=== PATIENT | female | born 1955 | race Caucasian/White ===

== ENCOUNTER → 2021-07-01 08:03 | Outpatient (CLI) | payer MEDICARE, OTHER, SELFPAY ==
[2021-07-01 18:48] LABS: Alanine Aminotransferase 16 IU/L (<35); Albumin 4.2 g/dL (3.5-5.0); Albumin Globulin Ratio 1.4 (1.0-2.8); Alkaline Phosphatase 72 U/L (38-126); Aspartate Aminotransferase 26 IU/L (14-36); BUN Creatinine Ratio 24.3 (6-22); Bilirubin Total 1.3 mg/dL (0.2-1.3); Blood Urea Nitrogen 18 mg/dL (7-17); Calcium 11.4 mg/dL (8.4-10.2); Carbon Dioxide 31 mmol/L (22-32); Chloride 104 mmol/L (98-107); Cholesterol 207 mg/dL (140-199); Estimated Glomerular Filt Rate > 60.0 mL/min (>60); Glucose 104 mg/dL (80-110); HDL Cholesterol 77 mg/dL (40-60); HEMOLYSIS < 15 (0-50); LDL Cholesterol Calculated 113 mg/dL (<100); Potassium 4.6 mmol/L (3.4-5.1); Sodium 138 mmol/L (137-145); Total Protein 7.2 g/dL (6.3-8.2); Triglycerides 84 mg/dL (35-150)
[2021-07-01 18:55] LABS: Add Manual Diff / Slide Review NO; Basophils Absolute Auto 0 /uL (0-100); Basophils Percent Auto 0.8 % (0-2); Eosinophils Absolute Auto 100 /uL (0-450); Eosinophils Percent Auto 3.2 % (2-4); Hemoglobin 14.3 g/dL (12.0-16.0); Lymphocytes Absolute Auto 1500 /uL (1100-4500); Mean Corpuscular HGB Conc 33.3 % (30-36); Mean Corpuscular Hemoglobin 30.1 PG (26-34); Mean Corpuscular Volume 90.5 fL (80-100); Monocytes Absolute Auto 400 /uL (0-900); Monocytes Percent Auto 9.3 % (3-14); Neutrophils Absolute Auto 2500 /uL (1500-7000); Neutrophils Percent Auto 54.7 % (50-75); Platelet Count 308 X10^3/uL (150-400); Red Blood Cell Count 4.75 X10^6/uL (4.0-5.2); Red Cell Distribution Width 13.6 % (11.6-14.8); White Blood Cell Count 4.6 X10^3/uL (4.5-11.0)
== END ==
PROVIDERS: PCP Family Medicine; Visit Provider Physician Assistant
DX: M25.511 Pain in right shoulder (principal); I10 Essential (primary) hypertension; G89.29 Other chronic pain
CPT/HCPCS: 80053; 80061; 85025

== ENCOUNTER → 2021-07-11 09:08 | Outpatient (CLI) | payer MEDICARE, OTHER, SELFPAY ==
[2021-07-11 18:36] LABS: Appearance Urine UA CLEAR; Bilirubin Urine UA NEGATIVE (NEGATIVE); Color Urine UA YELLOW; Glucose Urine UA NEGATIVE (Negative); Ketones Urine UA NEGATIVE (NEGATIVE); Leukocyte Esterase Urine UA NEGATIVE (NEGATIVE); Nitrite Urine UA NEGATIVE (Negative); Occult Blood Urine UA NEGATIVE (Negative); Protein Urine UA NEGATIVE (Negative); Specific Gravity Urine UA 1.015 (1.000-1.035); Urobilinogen Urine UA 0.2 E.U./dL (0.2)
[2021-07-11 18:37] LABS: pH Urine UA 5.5 (4.5-8.0)
[2021-07-11 19:09] LABS: RBC Urine None Seen (0-5/HPF); Squamous Epithelial Cell Urine 5-10 /HPF (0-5/HPF); WBC Urine 0-1/HPF (0-5/HPF)
[2021-07-11 19:10] LABS: Bacteria Urine None Seen; Culture Indicated Urine Cult Not Indicated
[2021-07-11 19:26] LABS: Vitamin D 25 Hydroxy (D3) 28.2 ng/mL (30.0-100.0)
[2021-07-11 19:39] LABS: TSH w/ Reflex to FT4 2.28 uIU/mL (0.47-4.68)
[2021-07-12 15:46] LABS: Calcium 10.5 mg/dL (8.7-10.3); Parathyroid Hormone, Intact 54 pg/mL (15-65)
== END ==
PROVIDERS: PCP Family Medicine; Visit Provider Physician Assistant
DX: E83.52 Hypercalcemia (principal); I10 Essential (primary) hypertension; B02.9 Zoster without complications; M54.40 Lumbago with sciatica, unspecified side
CPT/HCPCS: 81001; 82306; 82310; 83970; 84443

== ENCOUNTER → 2021-08-10 13:28 | Outpatient (CLI) | payer MEDICARE, OTHER, SELFPAY ==
[2021-08-10 18:48] LABS: BUN Creatinine Ratio 26.9 (6-22); Blood Urea Nitrogen 18 mg/dL (7-17); Carbon Dioxide 29 mmol/L (22-32); Chloride 104 mmol/L (98-107); Estimated Glomerular Filt Rate > 60.0 mL/min (>60); Glucose 89 mg/dL (80-110); HEMOLYSIS 18 (0-50); Potassium 4.3 mmol/L (3.4-5.1); Sodium 137 mmol/L (137-145)
[2021-08-22 15:10] LABS: 1,25-Dihydroxy, Vitamin D-2 <10 pg/mL (.)
== END ==
PROVIDERS: PCP Family Medicine; Visit Provider Physician Assistant
DX: E83.52 Hypercalcemia (principal)
CPT/HCPCS: 80048; 82652

== ENCOUNTER → 2021-09-20 11:40 | Outpatient (CLI) | payer MEDICARE, OTHER, SELFPAY ==
[2021-09-20 19:14] LABS: COVID19 - ORCAS (NP or Nasal) Negative (Negative)
== END ==
PROVIDERS: PCP Physician Assistant; Visit Provider Physician Assistant
DX: Z01.812 Encounter for preprocedural laboratory examination (principal)
CPT/HCPCS: 72100; C9803; U0003

== ENCOUNTER → 2021-10-20 12:47 | Outpatient (CLI) | payer MEDICARE, OTHER, SELFPAY ==
--- NOTE | 2021-10-20 | DI.MRI.S_ITS ---
PROCEDURE: MR SHOULDER RT WO CON INDICATIONS: RIGHT SHOULDER PAIN TECHNIQUE: Noncontrast oblique coronal T2 fast spin echo with fat saturation, oblique sagittal T1 spin echo and T2 fast spin echo with fat saturation, axial T1 spin echo and T2 fast spin echo with fat saturation through the shoulder. COMPARISON: None. FINDINGS: Image quality: Excellent. Rotator cuff: Full-thickness tear of the supraspinatus tendon measuring approximately 2.8 cm. Full-thickness of the infraspinatus tendon, measuring approximately 2.8 cm. Subscapularis tendinopathy with interstitial tear. Sagittal images demonstrate grade 2/3 supraspinatus muscle atrophy. Fatty atrophy of the infraspinatus muscle is also seen. Bones and bursae: No bone marrow contusions or fractures. Mild to moderate acromioclavicular joint degeneration with edema within the articulation. No os acromiale. Small amount subacromial-subdeltoid bursal fluid is present. Capsule and soft tissues: No definitive labral tear is appreciated. The long head of the biceps tendon demonstrates normal location. Small amount of fluid surrounds the biceps tendon, which may reflect joint fluid versus tenosynovitis. Small glenohumeral joint effusion. The coracohumeral ligament is normal in thickness. IMPRESSION: 1. Full-thickness tears of the supraspinatus and infraspinatus tendons as detailed above. 2. Mild to moderate AC joint degeneration. 3. Subacromial-subdeltoid bursal fluid, which may reflect bursitis versus joint fluid. 4. Glenohumeral joint fluid. 5. Small amount of fluid surrounding the biceps tendon, which may reflect tenosynovitis versus joint fluid. Dictated by: Uriah Landon M.D. on 10/20/2021 at 14:46 Approved by: Uriah Landon M.D. on 10/20/2021 at 15:39
--- NOTE | 2021-10-20 | DI.US.S_ITS ---
PROCEDURE: US PELVIC COMPLETE INDICATIONS: LEIOMYOMA OF UTERUS; TECHNIQUE: Real-time scanning was performed of the pelvic organs, with image documentation. Additional endovaginal scanning was necessary due to incomplete visualization of the adnexal and endometrial structures by transabdominal scanning. COMPARISON: None. FINDINGS: Uterus: Uterus is enlarged measuring 11.0 x 5.6 x 6.2 cm. Myometrium is not well seen. Endometrium is not visualized. There are multiple uterine fibroids. A 5.1 x 2.6 x 2.8 cm subserosal fibroid is seen in the right uterine wall. A 5.0 x 5.0 x 2.8 cm subserosal fibroid is also seen in the right uterine wall. There is a small amount of fluid within the endometrial canal. Strong posterior shadowing of the fibroids is likely secondary to calcifications. Ovaries: Not visualized due to overlying bowel loops. Other: No pathologic free abdominal or pelvic fluid and large shadowing uterine fibroids. IMPRESSION: 1. Myomatous uterus with at least 2 large uterine fibroids. 2. Myometrium is not well secondary to strong shadowing of the fibroids. Endometrium is not visualized. There is a small amount of fluid in the endocervical canal. Recommend MRI for further evaluation if clinically indicated. 2. Ovaries are not visualized. We strive to produce accurate, complete, and clear reports of imaging services. To assist us in improving patient care, this report was composed using standard report templates and voice recognition software. Therefore, it may contain abnormal punctuation, insertions and/or omissions. Occasional wrong-word or sound-alike substitutions may occur. Though we review the report and make efforts to correct it, we do recommend that the report be read carefully in proper context to recognize any text inaccuracies. Dictated by: Lluvia Marrero M.D. on 10/20/2021 at 17:52 Approved by: Lluvia Marrero M.D. on 10/21/2021 at 7:16
== END ==
PROVIDERS: PCP Physician Assistant; Referring Provider Physician Assistant; Visit Provider Physician Assistant
DX: M19.011 Primary osteoarthritis, right shoulder (principal); D25.2 Subserosal leiomyoma of uterus; N85.2 Hypertrophy of uterus; M25.511 Pain in right shoulder; M75.121 Complete rotator cuff tear or rupture of right shoulder, not specified as traumatic
CPT/HCPCS: 73221; 76830; 76856

== ENCOUNTER → 2022-02-07 14:00 | Outpatient (CLI) | payer MEDICARE, OTHER, SELFPAY ==
[2022-02-07 19:36] LABS: Alanine Aminotransferase 17 IU/L (<35); Albumin 3.9 g/dL (3.5-5.0); Albumin Globulin Ratio 1.3 (1.0-2.8); Alkaline Phosphatase 82 U/L (38-126); Aspartate Aminotransferase 24 IU/L (14-36); BUN Creatinine Ratio 23.3 (6-22); Bilirubin Total 0.8 mg/dL (0.2-1.3); Blood Urea Nitrogen 17 mg/dL (7-17); Calcium 10.4 mg/dL (8.4-10.2); Carbon Dioxide 25 mmol/L (22-32); Chloride 105 mmol/L (98-107); Estimated Glomerular Filt Rate > 60 mL/min (>60); Globulin 2.9 g/dL (1.7-4.1); Glucose 151 mg/dL (80-110); HEMOLYSIS 17 (0-50); Potassium 3.8 mmol/L (3.4-5.1); Sodium 136 mmol/L (137-145); Total Protein 6.8 g/dL (6.3-8.2)
[2022-02-09 11:34] LABS: Calcium 10.8 mg/dL (8.7-10.3); Parathyroid Hormone, Intact 61 pg/mL (15-65)
[2022-02-10 11:26] LABS: M-Spike % Not Observed % (Not Observed); Urine Total Protein <4.0 mg/dL (Not Estab.)
== END ==
PROVIDERS: PCP Family Medicine; Visit Provider Physician Assistant
DX: E83.52 Hypercalcemia (principal)
CPT/HCPCS: 80053; 82310; 82397; 83970; 84156; 84166

== ENCOUNTER → 2022-03-06 15:17 | Outpatient (CLI) | payer MEDICARE, OTHER, SELFPAY | PROVIDERS: PCP Physician Assistant; Referring Provider Physician Assistant; Visit Provider Physician Assistant | DX: Z13.820 Encounter for screening for osteoporosis; M85.851 Other specified disorders of bone density and structure, right thigh; M85.852 Other specified disorders of bone density and structure, left thigh; E83.52 Hypercalcemia; Z78.0 Asymptomatic menopausal state | CPT/HCPCS: 77080 ==

== ENCOUNTER → 2022-03-30 14:34 | Outpatient (CLI) | payer MEDICARE, OTHER, SELFPAY ==
[2022-04-04 15:42] LABS: Alpha 1 Globulin 0.3 g/dL (0.0-0.4); Alpha 2 Globulin 0.8 g/dL (0.4-1.0); Gamma Globulin 1.1 g/dL (0.4-1.8); Protein, Total 7.2 g/dL (6.0-8.5)
== END ==
PROVIDERS: PCP Physician Assistant; Visit Provider Physician Assistant
DX: E83.52 Hypercalcemia (principal)
CPT/HCPCS: 84155; 84165

== ENCOUNTER → 2022-05-10 09:11 | Outpatient (CLI) | payer MEDICARE, OTHER, SELFPAY ==
--- NOTE | 2022-05-10 09:14 | DI.MG.S_ITS ---
BILATERAL DIGITAL SCREENING MAMMOGRAM 3D/2D WITH CAD: 05/10/2022 CLINICAL: Routine screening. Comparison is made to exams dated: 01/03/2017 mammogram, 11/17/2016 mammogram, and 11/04/2014 mammogram - Outside facility. There are scattered areas of fibroglandular density in both breasts (category b / 25%-50% glandular tissue). Current study was also evaluated with a Computer Aided Detection (CAD) system. No significant masses, calcifications, or other findings are seen in either breast. There has been no significant interval change. IMPRESSION: NEGATIVE There is no mammographic evidence of malignancy. A 1 year screening mammogram is recommended. Based on the Tyrer Cuzick model (a risk assessment model) the patient's lifetime risk is 7.0% and her 10 year risk is 3.7%. According to the ACR, ACS, and NCCN guidelines, an annual breast MRI exam along with mammogram is recommended if the patient's lifetime risk is 20% or greater. This exam was interpreted at Station ID: [id number]. NOTE: For mammograms, a report in lay terms will be sent to the patient. Approximately 15% of breast malignancies will not be visualized mammographically. In the management of a palpable breast mass, a negative mammogram must not discourage biopsy of a clinically suspicious lesion. Electronically Signed By: Bienvenido mantilla/codi:05/10/2022 11:51:57 letter sent: Normal Exam ACR BI-RADS Category 1: Negative [id number]
== END ==
PROVIDERS: PCP Physician Assistant; Referring Provider Physician Assistant; Visit Provider Physician Assistant
DX: Z12.31 Encounter for screening mammogram for malignant neoplasm of breast (principal)
CPT/HCPCS: 77063; 77067

== ENCOUNTER → 2022-07-12 13:07 | Outpatient (CLI) | payer MEDICARE, OTHER, SELFPAY ==
[2022-07-12 20:24] LABS: BUN Creatinine Ratio 20.2 (6-22); Blood Urea Nitrogen 19 mg/dL (7-17); Calcium 10.9 mg/dL (8.4-10.2); Carbon Dioxide 28 mmol/L (22-32); Chloride 104 mmol/L (98-107); Estimated Glomerular Filt Rate > 60 mL/min (>60); Glucose 88 mg/dL (80-110); HEMOLYSIS < 15 (0-50); Potassium 4.6 mmol/L (3.4-5.1); Sodium 138 mmol/L (137-145)
== END ==
PROVIDERS: PCP Physician Assistant; Visit Provider Physician Assistant
DX: E83.52 Hypercalcemia (principal)
CPT/HCPCS: 80048

== ENCOUNTER → 2022-10-19 08:49 | Outpatient (CLI) | payer MEDICARE, OTHER, SELFPAY ==
[2022-10-19 10:50] LABS: BUN Creatinine Ratio 25.7 (6-22); Blood Urea Nitrogen 19 mg/dL (7-17); Calcium 10.6 mg/dL (8.4-10.2); Carbon Dioxide 27 mmol/L (22-32); Chloride 102 mmol/L (98-107); Estimated Glomerular Filt Rate > 60 mL/min (>60); Glucose 99 mg/dL (80-110); HEMOLYSIS < 15 (0-50); Potassium 4.9 mmol/L (3.4-5.1); Sodium 134 mmol/L (137-145)
[2022-10-19 11:06] LABS: Vitamin D 25 Hydroxy (D3) 27.2 ng/mL (30.0-100.0)
[2022-10-19 11:20] LABS: TSH w/ Reflex to FT4 1.27 uIU/mL (0.47-4.68)
[2022-10-20 12:30] LABS: Ionized Calcium 5.7 mg/dL (4.5-5.6)
[2022-10-22 08:40] LABS: Parathyroid Hormone Int 91 pg/mL (15-65)
[2022-10-23 16:20] LABS: Albumin 3.6 g/dL (2.9-4.4); Alpha-1-Globulin 0.2 g/dL (0.0-0.4); Alpha-2-Globulin 0.7 g/dL (0.4-1.0); Gamma Globulin 1.1 g/dL (0.4-1.8); Globulin Total 2.9 g/dL (2.2-3.9); Protein, Total 6.5 g/dL (6.0-8.5)
[2022-10-24 13:26] LABS: M-Spike % Not Observed % (Not Observed); Urine Total Protein 4.7 mg/dL (Not Estab.)
== END ==
PROVIDERS: PCP Physician Assistant; Referring Provider Internal Medicine Endocrinology, Diabetes & Metabolism; Visit Provider Internal Medicine Endocrinology, Diabetes & Metabolism
DX: E83.52 Hypercalcemia (principal)
CPT/HCPCS: 36415; 80048; 82306; 82330; 82652; 83970; 84155; 84156; 84165; 84166; 84443

== ENCOUNTER → 2022-10-23 10:05 | Outpatient (CLI) | payer MEDICARE, OTHER, SELFPAY ==
[2022-10-23 23:44] LABS: Calcium Urine Random 9.9 mg/dL
[2022-10-23 23:45] LABS: Creatinine Urine Random 74.1 mg/dL
[2022-10-24 00:54] LABS: Collection Time Urine 24 Hours
[2022-10-24 00:55] LABS: Calcium 24 Hour Urine 129 mg/day (100-300); Collection Time Urine 24 Hours; Creatinine 24 Hour Urine 963 mg/day (800-1800); Total Volume Urine 1300 mL
== END ==
PROVIDERS: PCP Physician Assistant; Visit Provider Internal Medicine Endocrinology, Diabetes & Metabolism
DX: E83.50 Unspecified disorder of calcium metabolism (principal)
CPT/HCPCS: 82340; 82570

== ENCOUNTER → 2023-03-08 11:38 | Outpatient (CLI) | payer MEDICARE, OTHER, SELFPAY ==
[2023-03-08 20:02] LABS: BUN Creatinine Ratio 22.1 (6-22); Blood Urea Nitrogen 15 mg/dL (7-17); Calcium 11.2 mg/dL (8.4-10.2); Carbon Dioxide 29 mmol/L (22-32); Chloride 103 mmol/L (98-107); Estimated Glomerular Filt Rate > 60 mL/min (>60); Glucose 100 mg/dL (80-110); HEMOLYSIS < 15 (0-50); Potassium 4.1 mmol/L (3.4-5.1); Sodium 137 mmol/L (137-145)
[2023-03-08 20:27] LABS: Vitamin D 25 Hydroxy (D3) 20.7 ng/mL (30.0-100.0)
[2023-03-13 06:44] LABS: Parathyroid Hormone Int 76 pg/mL (15-65)
== END ==
PROVIDERS: PCP Physician Assistant; Visit Provider Internal Medicine Endocrinology, Diabetes & Metabolism
DX: M85.80 Other specified disorders of bone density and structure, unspecified site (principal); E83.52 Hypercalcemia
CPT/HCPCS: 80048; 82306; 82397; 83970

== ENCOUNTER → 2023-06-19 17:18 | Outpatient (CLI) | payer MEDICARE, OTHER, SELFPAY ==
[2023-06-19 17:41] LABS: Add Manual Diff / Slide Review NO; Basophils Absolute Auto 0 /uL (0-100); Basophils Percent Auto 0.6 % (0-2); Eosinophils Absolute Auto 100 /uL (0-450); Hemoglobin 13.6 g/dL (12.0-16.0); Lymphocytes Absolute Auto 2100 /uL (1100-4500); Lymphocytes Percent Auto 30.4 % (25-40); Mean Corpuscular HGB Conc 33.1 % (30-36); Mean Corpuscular Hemoglobin 30.1 PG (26-34); Mean Corpuscular Volume 91.1 fL (80-100); Monocytes Absolute Auto 600 /uL (0-900); Monocytes Percent Auto 8.5 % (3-14); Neutrophils Absolute Auto 4100 /uL (1500-7000); Neutrophils Percent Auto 58.5 % (50-75); Platelet Count 293 X10^3/uL (150-400); Red Cell Distribution Width 14.2 % (11.6-14.8); White Blood Cell Count 7.1 X10^3/uL (4.5-11.0)
== END ==
LOC: LAB 17:20
PROVIDERS: PCP Physician Assistant; Referring Provider Physician Assistant; Visit Provider Physician Assistant
DX: Z51.81 Encounter for therapeutic drug level monitoring (principal); Z79.1 Long term (current) use of non-steroidal anti-inflammatories (NSAID)
CPT/HCPCS: 36415; 85025

== ENCOUNTER → 2023-08-14 16:44 | Outpatient (CLI) | payer MEDICARE, OTHER, SELFPAY ==
--- NOTE | 2023-08-14 16:46 | DI.MG.S_ITS ---
BILATERAL DIGITAL SCREENING MAMMOGRAM 3D/2D WITH CAD: 08/14/2023 CLINICAL: Routine screening. Comparison is made to exams dated: 05/10/2022 mammogram - [facility], 01/03/2017 mammogram, 11/04/2014 mammogram, and 08/02/2011 mammogram - Outside facility. There are scattered areas of fibroglandular density in both breasts (category b / 25%-50% glandular tissue). Current study was also evaluated with a Computer Aided Detection (CAD) system. No significant masses, calcifications, or other findings are seen in either breast. There has been no significant interval change. IMPRESSION: NEGATIVE There is no mammographic evidence of malignancy. A 1 year screening mammogram is recommended. Based on the Tyrer Cuzick model (a risk assessment model) the patient's lifetime risk is 6.6% and her 10 year risk is 3.7%. According to the ACR, ACS, and NCCN guidelines, an annual breast MRI exam along with mammogram is recommended if the patient's lifetime risk is 20% or greater. This exam was interpreted at Station ID: [id number]. NOTE: For mammograms, a report in lay terms will be sent to the patient. Approximately 15% of breast malignancies will not be visualized mammographically. In the management of a palpable breast mass, a negative mammogram must not discourage biopsy of a clinically suspicious lesion. Electronically Signed By: Hector aguilera/codi:08/15/2023 12:58:20 letter sent: Normal Exam ACR BI-RADS Category 1: Negative [id number]
== END ==
PROVIDERS: PCP Physician Assistant; Referring Provider Physician Assistant; Visit Provider Physician Assistant
DX: Z12.31 Encounter for screening mammogram for malignant neoplasm of breast (principal); R92.323 Mammographic fibroglandular density, bilateral breasts
CPT/HCPCS: 77063; 77067

== ENCOUNTER → 2023-08-30 09:47 | Outpatient (CLI) | payer MEDICARE, OTHER, SELFPAY ==
[2023-08-30 18:55] LABS: Alanine Aminotransferase 18 IU/L (<35); Albumin Globulin Ratio 1.4 (1.0-2.8); Alkaline Phosphatase 95 U/L (38-126); Aspartate Aminotransferase 26 IU/L (14-36); Bilirubin Total 0.9 mg/dL (0.2-1.3); Blood Urea Nitrogen 22 mg/dL (7-17); Calcium 11.4 mg/dL (8.4-10.2); Carbon Dioxide 26 mmol/L (22-32); Chloride 109 mmol/L (98-107); Cholesterol 204 mg/dL (140-199); Estimated Glomerular Filt Rate > 60 mL/min (>60); Globulin 2.9 g/dL (1.7-4.1); Glucose 99 mg/dL (80-110); HDL Cholesterol 82 mg/dL (40-60); HEMOLYSIS < 15 (0-50); LDL Cholesterol Calculated 109 mg/dL (<100); Potassium 4.8 mmol/L (3.4-5.1); Sodium 137 mmol/L (137-145); Total Protein 6.9 g/dL (6.3-8.2); Triglycerides 67 mg/dL (35-150)
== END ==
PROVIDERS: PCP Physician Assistant; Visit Provider Physician Assistant
DX: Z13.6 Encounter for screening for cardiovascular disorders (principal); I10 Essential (primary) hypertension; E83.52 Hypercalcemia
CPT/HCPCS: 80053; 80061

== ENCOUNTER → 2023-09-03 08:56 | Outpatient (CLI) | payer MEDICARE, OTHER, SELFPAY ==
--- NOTE | 2023-09-03 | DI.US.S_ITS ---
PROCEDURE: US EXTREMITY NONVASC UPPER LT INDICATIONS: Localized swelling, mass and lump, left upper limb TECHNIQUE: Real-time scanning was performed of the left upper arm , with image documentation. COMPARISON: None. FINDINGS: 2 isoechoic well-circumscribed masses the larger of which is located laterally measuring 5.3 x 2 x 1.7 cm and the smaller which is located more medially measuring 2.5 x 1.5 x 1.6 cm. IMPRESSION: Two isoechoic well-circumscribed masses in the left upper arm which likely represent lipomas. Correlate with physical exam. If there is an interval increase in size, consider MRI for further evaluation. Dictated by: Anita Hodges M.D. on 09/03/2023 at 11:04 Approved by: Anita Hodges M.D. on 09/03/2023 at 11:20
== END ==
PROVIDERS: PCP Physician Assistant; Referring Provider Physician Assistant; Visit Provider Physician Assistant
DX: R22.32 Localized swelling, mass and lump, left upper limb (principal)
CPT/HCPCS: 76882

== ENCOUNTER → 2023-09-20 14:00 | Outpatient (CLI) | payer MEDICARE, OTHER, SELFPAY ==
--- NOTE | 2023-09-20 14:02 | DI.MRI.S_ITS ---
PROCEDURE: MR HUMERUS LT WO/W CON INDICATIONS: f/u 09/03/23 US LUE. Increased pain TECHNIQUE: Noncontrast coronal T1 spin echo and STIR, sagittal T1 spin echo with fat saturation and STIR, axial T1 spin echo and T2 fast spin echo with fat saturation. After the administration of contrast, axial/sagittal/coronal T1 spin echo with fat saturation through the left humerus . COMPARISON: [facility], US, US EXTREMITY NONVASC UPPER LT, 09/03/2023, 9:43. FINDINGS: Image quality: Excellent. Bones: The visualized bone marrow demonstrates normal signal on all sequences. The overlying cortex appears intact. No abnormal intraosseous enhancement. Soft tissues: Circumscribed fatty mass is seen at the posterolateral aspect of the shoulder overlying the posterior belly of the deltoid muscle, which measures approximately 6.9 x 4.2 x 2.5 cm in greatest dimensions. This area encompasses both of the previously seen sonographic masses. No significant non-fatty component is seen on precontrast T1-weighted images. There is mild [id number] signal and edema along the inferior margin of the mass that could represent mild edema. The scanned muscles demonstrate normal overall bulk and internal signal. IMPRESSION: Circumscribed adjacent fatty masses again seen in the subcutaneous tissues at the posterolateral aspect of the upper arm, together measuring up to 6.9 cm in maximum dimension. Subtle edema along the posterior inferior margin of the mass is likely related to superimposed trauma, versus less likely a thickened septation or trace soft tissue component. Findings are most likely lipomas or low-grade liposarcoma and clinical follow up is recommended. Consider surgical excision if there is an increase in size or symptoms. Approved by: Bienvenido Miranda M.D. on 09/21/2023 at 9:26
== END ==
LOC: MRI 14:01
PROVIDERS: PCP Physician Assistant; Referring Provider Physician Assistant; Visit Provider Physician Assistant
DX: R22.32 Localized swelling, mass and lump, left upper limb (principal)
CPT/HCPCS: 73220; A9579

== ENCOUNTER → 2023-10-30 14:51 | Outpatient (CLI) | payer MEDICARE, OTHER, SELFPAY ==
--- NOTE | 2023-10-30 14:53 | DI.MRI.S_ITS ---
PROCEDURE: MR LUMBAR SPINE WO CON INDICATIONS: Right-sided lumbar radiculopathy with abnormal lumbar x-ray TECHNIQUE: Noncontrast sagittal T1 spin echo and T2 fast echo, sagittal STIR, and T2 fast spin echo through the lumbar spine. In cases with scoliosis, additional coronal T2 fast spin echo may be performed. COMPARISON: [facility], , PELVIC COMPLETE, 10/20/2021, 14:11. FINDINGS: Image quality: Excellent. Alignment and Curvature: There is grade I L3 on L4 and L4 on L5 anterolisthesis. Bone Marrow: Marrow is of normal overall signal. No acute vertebral body compression fractures. Spinal Cord: Conus medullaris terminates at the L1 level. Visualized cord demonstrates normal signal and size. Paraspinous Soft Tissues: No paravertebral masses. Two T2 hypointense masses likely representing uterine fibroids are present within the uterine fundus and the lower uterine segment/cervical region. The larger lesion in the uterine fundus measures 8.2 x 7.1 cm in the axial plane. This fundal fibroid measured 5.0 x 5.0 x 5.8 cm on the comparison pelvic ultrasound dated October 20, 2021. The fibroid within the lower uterine segment previously measured 5.1 x 2.6 x 2.8 cm. This measures 6.5 x 4.7 cm in the axial plane. T12-L1: Severe disc desiccation and height loss. Moderate facet ligamentum flavum hypertrophy. No canal stenosis. Mild bilateral foraminal stenosis. L1-L2: Moderate disc desiccation and height loss. Broad-based disc bulge. Mild facet ligamentum flavum hypertrophy. No canal stenosis. Mild bilateral foraminal stenosis. L2-L3: Severe disc desiccation and height loss. Moderate facet ligamentum flavum hypertrophy. Moderate canal stenosis. Mild bilateral foraminal stenosis. L3-L4: Anterolisthesis. Moderate disc desiccation and height loss. Vacuum disc phenomenon. Severe facet ligamentum flavum hypertrophy. Moderate canal stenosis. Moderate bilateral foraminal stenosis. L4-L5: Anterolisthesis. Severe disc desiccation and height loss. Broad-based disc bulge. Severe facet and ligamentum flavum hypertrophy. Mild canal stenosis. Mild right and moderate left neural foraminal stenosis. L5-S1: Moderate disc desiccation and height loss. Broad-based disc bulge. Severe facet sclerosis. No canal stenosis. Severe right and moderate left foraminal stenosis. There is flattening of the bilateral exiting nerve roots. IMPRESSION: 1. Fibroid uterus. When compared to the ultrasound from 2021, the uterine fibroids appear increased in size. Repeat pelvic ultrasound is recommended to further characterize these findings and evaluate interval growth using the same imaging modality for comparison. 2. Multilevel disc desiccation and height loss most severe at L3-4 through L5-S1. 3. Anterolisthesis, broad-based disc bulges, and facet and ligamentum flavum hypertrophy with resultant moderate canal stenosis at L2-3 and L3-4 and mild canal stenosis at L4-5. 4. Moderate bilateral foraminal stenosis at L3-4, moderate left foraminal stenosis at L4-5 and L5-S1, and severe right foraminal stenosis at L5-S1. There is flattening of the bilateral exiting nerve roots at L5-S1. Dictated by: Ernestine Masterson M.D. on 10/31/2023 at 7:51 Approved by: Ernestine Masterson M.D. on 10/31/2023 at 8:10
== END ==
PROVIDERS: PCP Physician Assistant; Referring Provider Physician Assistant; Visit Provider Physician Assistant
DX: M43.16 Spondylolisthesis, lumbar region (principal); M51.16 Intervertebral disc disorders with radiculopathy, lumbar region; M51.17 Intervertebral disc disorders with radiculopathy, lumbosacral region; M48.061 Spinal stenosis, lumbar region without neurogenic claudication; M48.07 Spinal stenosis, lumbosacral region; M47.26 Other spondylosis with radiculopathy, lumbar region; D27.9 Benign neoplasm of unspecified ovary
CPT/HCPCS: 72148

== ENCOUNTER → 2023-11-20 08:35 | Outpatient (CLI) | payer MEDICARE, OTHER, SELFPAY ==
--- NOTE | 2023-11-20 08:37 | DI.US.S_ITS ---
PROCEDURE: US PELVIC COMPLETE INDICATIONS: surveillance of large uterine fibroids (prev. US. lumbar XR) TECHNIQUE: Real-time scanning was performed of the pelvic organs, with image documentation. Additional endovaginal scanning was necessary due to incomplete visualization of the adnexal and endometrial structures by transabdominal scanning. COMPARISON: [facility], MR, MR LUMBAR SPINE WO CON, 10/30/2023, 15:26. [facility], US, US PELVIC COMPLETE, 10/20/2021, 14:11. FINDINGS: Uterus: Suboptimal visualization due to the presence of large, calcified fibroids. These are only partially visualized due to posterior shadowing. The subserosal fibroids measure 5.4 x 3.8 x 4.3 cm (previously 5.1 x 2.6 x 2.8 cm) and 4.6 x 3.6 x 4.2 cm (previously 5.0 x 5.0 x 5.8 cm). Ovaries: Not visualized due to calcified fibroids. Other: No pathologic free abdominal or pelvic fluid. IMPRESSION: Large calcified fibroids, obscuring the view of the pelvis. These could not be adequately surveillance to due to the presence of posterior shadowing. We strive to produce accurate, complete, and clear reports of imaging services. To assist us in improving patient care, this report was composed using standard report templates and voice recognition software. Therefore, it may contain abnormal punctuation, insertions and/or omissions. Occasional wrong-word or sound-alike substitutions may occur. Though we review the report and make efforts to correct it, we do recommend that the report be read carefully in proper context to recognize any text inaccuracies. Dictated by: Conrad Martinez M.D. on 11/20/2023 at 9:52 Approved by: Conrad Martinez M.D. on 11/20/2023 at 9:54
== END ==
LOC: US 08:36
PROVIDERS: PCP Physician Assistant; Referring Provider Physician Assistant; Visit Provider Physician Assistant
DX: D25.1 Intramural leiomyoma of uterus (principal); D25.2 Subserosal leiomyoma of uterus
CPT/HCPCS: 76856

== ENCOUNTER → 2024-01-02 12:18 | Outpatient (CLI) | payer MEDICARE, OTHER, SELFPAY ==
[2024-01-02 20:31] LABS: Add Manual Diff / Slide Review NO; Alanine Aminotransferase 17 IU/L (<35); Albumin Globulin Ratio 1.4 (1.0-2.8); Alkaline Phosphatase 99 U/L (38-126); Aspartate Aminotransferase 24 IU/L (14-36); BUN Creatinine Ratio 27.5 (6-22); Basophils Absolute Auto 100 /uL (0-100); Basophils Percent Auto 1.1 % (0-2); Bilirubin Total 0.7 mg/dL (0.2-1.3); Blood Urea Nitrogen 19 mg/dL (7-17); Calcium 10.6 mg/dL (8.4-10.2); Carbon Dioxide 25 mmol/L (22-32); Chloride 108 mmol/L (98-107); Eosinophils Absolute Auto 100 /uL (0-450); Eosinophils Percent Auto 2.3 % (2-4); Estimated Glomerular Filt Rate > 60 mL/min (>60); Globulin 2.9 g/dL (1.7-4.1); Glucose 97 mg/dL (80-110); HEMOLYSIS 15 (0-50); HEMOLYSIS < 15 (0-50); Hematocrit 39.7 % (36-46); Hemoglobin 13.1 g/dL (12.0-16.0); Iron 98 ug/dL (37-170); Lymphocytes Absolute Auto 1600 /uL (1100-4500); Lymphocytes Percent Auto 30.3 % (25-40); Mean Corpuscular HGB Conc 32.9 % (30-36); Mean Corpuscular Hemoglobin 30.1 PG (26-34); Mean Corpuscular Volume 91.4 fL (80-100); Monocytes Absolute Auto 500 /uL (0-900); Neutrophils Absolute Auto 2900 /uL (1500-7000); Neutrophils Percent Auto 56.3 % (50-75); Platelet Count 304 X10^3/uL (150-400); Potassium 4.4 mmol/L (3.4-5.1); Red Blood Cell Count 4.35 X10^6/uL (4.0-5.2); Red Cell Distribution Width 13.8 % (11.6-14.8); Sodium 137 mmol/L (137-145); Total Protein 6.9 g/dL (6.3-8.2); White Blood Cell Count 5.2 X10^3/uL (4.5-11.0)
[2024-01-02 20:41] LABS: Transferrin 249 mg/dL (206-381)
[2024-01-02 20:47] LABS: Percent Iron Saturation 30 % (15-50); Total Iron Binding Capacity 325 ug/dL (265-497)
[2024-01-02 21:05] LABS: TSH w/ Reflex to FT4 0.77 uIU/mL (0.47-4.68)
[2024-01-02 21:06] LABS: Ferritin 34 ng/mL (11-264)
== END ==
PROVIDERS: PCP Physician Assistant; Referring Provider Physician Assistant; Visit Provider Physician Assistant
DX: Z79.899 Other long term (current) drug therapy (principal); D64.9 Anemia, unspecified; R39.15 Urgency of urination; Z79.1 Long term (current) use of non-steroidal anti-inflammatories (NSAID); E83.52 Hypercalcemia; I10 Essential (primary) hypertension; R42 Dizziness and giddiness; Z98.890 Other specified postprocedural states
CPT/HCPCS: 80053; 82728; 83540; 83550; 84443; 85025

== ENCOUNTER 2024-01-30 08:29 | Outpatient (CLI) | payer MEDICARE, OTHER, SELFPAY ==
[2024-01-30 08:40] VITALS: BP 150/85; PULSE 74; RESP 16; TEMP 36.6; O2SAT 97
--- NOTE | 2024-01-30 09:00 | DI.RAD.S_ITS ---
PROCEDURE: PAIN L INTERLAMINAR/CAUDAL INJ INDICATIONS: RADICULOPATHY COMPARISON: None. FINDINGS: Fluoroscopic spot filming was performed to verify placement of spinal needles at the L5-S1 level(s), as labeled on the films. Appropriate location(s) of the needle tip(s) was confirmed by injection of iodinated contrast. IMPRESSION: Needle and contrast localization at L5-S1. Dictated by: Lupe Hilliard M.D. on 01/30/2024 at 16:21 Approved by: Lupe Hilliard M.D. on 01/30/2024 at 16:21
[2024-01-30 09:15] VITALS: BP 138/80; PULSE 67; RESP 10; O2SAT 100
[2024-01-30 09:20] VITALS: BP 147/83; PULSE 66; RESP 13; O2SAT 100
[2024-01-30] MEDS: iopamidoL 15 ML VIAL 3 ML INJ (09:20)
[2024-01-30] MEDS: DEXAMETHASONE 10 MG/ML VIAL INJ (09:20)
[2024-01-30] MEDS: LIDOCAINE 1% (PF) 5 ML INJ (09:21)
[2024-01-30 09:25] VITALS: BP 139/83; PULSE 67; RESP 15; O2SAT 100
[2024-01-30 09:31] VITALS: BP 179/79; PULSE 70; RESP 16; O2SAT 100
[2024-01-30 09:34] VITALS: BP 167/80; PULSE 68; RESP 14; O2SAT 100
--- NOTE | 2024-01-30 10:25 | P.PCN_ITS ---
Date/Time/Diagnoses Date of procedure: 01/30/24 Time of procedure: 09:00 Procedure Notes Physician: Joseph Mascorro Total Fluoroscopy time (seconds): 13 Total sedation minutes: 0 Procedure in detail & Post-procedure care: L5-S1 Interlaminar Epidural Steroid Injection Indications: Teodora is presenting for treatment of lumbar radiculopathy with low back and leg pain. Preoperative diagnosis: Lumbar radiculopathy Postoperative diagnosis: Same Focused Examination: Ax3 Mood and affect are normal Vital Signs: VSS Consent: Following review of allergies and potential side effects/complications, including, but not necessarily limited to, infection, allergic reaction, local tissue breakdown, stroke, temporary or permanent nerve injury, paralysis, and possible , the patient indicated that they understood and agreed to proceed.? An informed consent document was signed by the patient, witnessed by a nurse and placed in the patient's chart.? Additionally, other treatment options including medications and physical therapy were reviewed with the patient. All questions were answered. Site was then marked. Anesthesia: Local Position: Prone Monitoring: NIBP, Pulse oximetry, 3 lead EKG Needle used: 18 G 3.5? Tuohy Contrast: Isovue 300M Injectate: Dexamethasone 10 mg with 1% lidocaine 2 mL Technique: The skin was prepped with chloraprep and then draped in a sterile fashion. Time out was performed as per protocol. Oxygen applied via NC. Skin and subcutaneous structures of the needle entry site was then infiltrated with 3 mL of lidocaine 1%. Under AP, lateral and contralateral oblique fluoroscopic control, the Tuohy needle was guided into the L5-S1 epidural space. The space was accessed with loss of resistance technique. Isovue 300M was then injected and the spread was consistent with the epidural space. There was no evidence for intravascular or intrathecal uptake. After negative aspiration, the above- mentioned injectate was then slowly administered and the needle withdrawn. The patient expressed no unusual discomfort or paresthesias during the injection. Band-Aids applied to injection sites. EBL: less than 1 ml Complications: None Post Procedure: Patient was taken to the recovery and monitored. The patient was provided a Pain Log to continue to record the patient's response to the target- specific procedure prior to the patient's follow-up visit with the referring physician. Patient was stable upon discharge. Detailed post procedure instructions were provided. Patient was asked to call in the event of worsening pain, fever, weakness, numbness or bladder or bowel incontinence.
== END 2024-01-30 09:36 | disposition home or self-care (01) ==
LOC: RAD 08:30
PROVIDERS: PCP Physician Assistant; Referring Provider Anesthesiology; Visit Provider Anesthesiology
DX: M54.16 Radiculopathy, lumbar region (principal)
CPT/HCPCS: 62323; J1100

== ENCOUNTER → 2024-10-16 09:54 | Outpatient (CLI) | payer MEDICARE, OTHER, SELFPAY ==
[2024-10-16 19:37] LABS: Add Manual Diff / Slide Review NO; Basophils Absolute Auto 0 /uL (0-100); Basophils Percent Auto 0.9 % (0-2); Eosinophils Absolute Auto 100 /uL (0-450); Eosinophils Percent Auto 2.3 % (2-4); Hematocrit 41.5 % (36-46); Hemoglobin 13.7 g/dL (12.0-16.0); Lymphocytes Absolute Auto 1300 /uL (1100-4500); Lymphocytes Percent Auto 27.1 % (25-40); Mean Corpuscular HGB Conc 33.1 % (30-36); Mean Corpuscular Hemoglobin 30.5 PG (26-34); Mean Corpuscular Volume 92.1 fL (80-100); Monocytes Absolute Auto 400 /uL (0-900); Monocytes Percent Auto 8.7 % (3-14); Neutrophils Absolute Auto 2900 /uL (1500-7000); Platelet Count 306 X10^3/uL (150-400); Red Cell Distribution Width 13.7 % (11.6-14.8); White Blood Cell Count 4.7 X10^3/uL (4.5-11.0)
[2024-10-16 19:49] LABS: Alanine Aminotransferase 23 IU/L (<35); Albumin 4.4 g/dL (3.5-5.0); Albumin Globulin Ratio 1.5 (1.0-2.8); Alkaline Phosphatase 86 U/L (38-126); Aspartate Aminotransferase 33 IU/L (14-36); BUN Creatinine Ratio 22.4 (6-22); Bilirubin Total 0.9 mg/dL (0.2-1.3); Blood Urea Nitrogen 19 mg/dL (7-17); Calcium 10.5 mg/dL (8.4-10.2); Carbon Dioxide 26 mmol/L (22-32); Chloride 105 mmol/L (98-107); Cholesterol 213 mg/dL (140-199); Estimated Glomerular Filt Rate > 60 mL/min (>60); Globulin 2.9 g/dL (1.7-4.1); Glucose 97 mg/dL (70-99); HDL Cholesterol 70 mg/dL (40-60); HEMOLYSIS < 15 (0-50); LDL Cholesterol Calculated 125 mg/dL (<100); Potassium 4.4 mmol/L (3.4-5.1); Sodium 139 mmol/L (137-145); Total Protein 7.3 g/dL (6.3-8.2); Triglycerides 91 mg/dL (35-150)
[2024-10-16 20:21] LABS: TSH w/ Reflex to FT4 1.23 uIU/mL (0.47-4.68)
[2024-10-16 20:37] LABS: Hep C Virus Ab w/Reflex Quant NEGATIVE s/c (NEGATIVE)
== END ==
PROVIDERS: PCP Physician Assistant; Visit Provider Physician Assistant
DX: E20.9 Hypoparathyroidism, unspecified (principal); Z13.6 Encounter for screening for cardiovascular disorders; R42 Dizziness and giddiness; Z11.59 Encounter for screening for other viral diseases; Z98.890 Other specified postprocedural states
CPT/HCPCS: 80053; 80061; 84443; 85025; 86803

== ENCOUNTER → 2024-10-30 11:16 | Outpatient (CLI) | payer MEDICARE, OTHER, SELFPAY ==
--- NOTE | 2024-10-30 11:19 | DI.MG.S_ITS ---
MM screening mammo BI: 10/30/2024. BI-RADS: 1 CLINICAL: 68-year old female for bilateral screening mammogram. Tyrer-Cuzick lifetime risk of 4.9%. No personal or first-degree family history of breast cancer. PRIOR EXAMS 08/14/2023, 05/10/2022. MAMMOGRAPHY TECHNIQUE: 2D and 3D (tomosynthesis) digital mammographic views obtained, with additional images as needed for full coverage. Current study was also evaluated with a Computer Aided Detection (CAD) system. DENSITY B. There are scattered areas of fibroglandular density. MAMMOGRAPHY FINDINGS Bilateral: No suspicious mass, asymmetry, microcalcification, or other abnormality seen. IMPRESSION: * No evidence of malignancy. RECOMMENDATIONS Bilateral * Annual screening mammography. OVERALL ASSESSMENT CATEGORY BI-RADS-1: Negative. The [employer] recommends annual screening mammography beginning at age 40 for women with average risk of breast cancer. ELECTRONICALLY SIGNED: Mitzi Urbina M.D. on 10/31/2024 at 01:30:47 PM PT Interpreting Station ID: [id number]
--- NOTE | 2024-10-30 11:21 | DI.RAD.S_ITS ---
PROCEDURE: XR DEXA AXIAL SKELETON INDICATIONS: bone density screening COMPARISON: [facility], [place], XR DEXA AXIAL SKELETON, 03/06/2022, 15:39. FINDINGS: Lumbar Spine: Bone mineral density 0.992 g/cm2, T score -0.5, Prior study was performed on a different unit, and therefore it is not possible to evaluate potential statistically significant change between the 2 studies. Left Femoral Neck: Bone mineral density 0.639 g/cm2, T score -1.9. Left Hip: Bone mineral density 0.803 g/cm2, T score -1.1, Prior study was performed on a different unit, and therefore it is not possible to evaluate potential statistically significant change between the 2 studies. . Fracture Risk Calculation (when applicable): 10-year fracture risk of a major osteoporotic fracture 17 percent and of a hip fracture 3.8 percent. (T score greater or equal to -1.0 to: NORMAL) (T score from -1.1 to -2.4: OSTEOPENIA) (T score less than or equal to -2.5: OSTEOPOROSIS) IMPRESSION: 1. By WHO (World Health Organization) criteria, this patient has low bone density (osteopenia) with an associated 10 year probability of major osteoporosis related fracture of greater than 20% and/or a 10 year probability of hip fracture > 3 % 2. Prior study was performed on a different unit, and therefore it is not possible to evaluate potential statistically significant change between the 2 studies. 3. Medical evaluation for secondary causes of low bone density should be considered along with maximizing calcium and vitamin D nutrition. Due to this patient's associated increased 10 year fracture risk, osteoporosis therapy may be indicated. Recommend clinical correlation. Consider repeat DEXA scan in 1 to 2 years. Follow-up guidelines as follows: Osteoporosis: Consider a repeat DEXA and Vertebral Fracture Assessment (VFA) exam in 2 years or sooner if medically necessary, to reassess this patient's status. Osteopenia: Consider a repeat DEXA in 2-3 years to reassess this patient's status, or if there is a new clinical indication. Normal: Consider a repeat DEXA in 5 years or sooner, or if there is a new clinical indication. All treatment decisions require clinical judgment and consideration of individual patient factors, including patient preferences, comorbidities, previous drug use, risk factors not captured in the FRAX model (e.g., frailty, falls, vitamin D deficiency, increased bone turnover, interval significant decline in bone density ) and possible under- or over-estimation of fracture risk by FRAX. In addition, the NOF Guide recommends that FDA-approved medical therapies be considered in postmenopausal women and men age >= 50 years with a: * Hip or vertebral (clinical or morphometric) fracture * T-score of <=-2.5 at the spine or hip * Ten-year fracture probability by FRAX of >= 3% for hip fracture or >=20% for major osteoporotic fracture. Dictated by: Vernon Carbajal M.D. on 10/30/2024 at 21:59 Approved by: Vernon Carbajal M.D. on 10/30/2024 at 22:01
--- NOTE | 2024-10-30 11:21 | DI.MRI.S_ITS ---
PROCEDURE: MR SHOULDER RT WO CON INDICATIONS: worsening right shoulder pain and strength TECHNIQUE: Noncontrast oblique coronal T2 fast spin echo with fat saturation, oblique sagittal T1 spin echo and T2 fast spin echo with fat saturation, axial T1 spin echo and T2 fast spin echo with fat saturation through the shoulder. COMPARISON: [facility], MR, MR SHOULDER RT WO CON, 10/20/2021, 13:41. FINDINGS: Image quality: Excellent. Rotator cuff: Full-thickness rupture involving distal supraspinatus at its insertion on the humeral head is seen with up to 3.5 cm medial retraction of torn tendon fibers to the level of acromion. Low-grade articular surface partial-thickness tear involving distal infraspinatus at its insertion on the humeral head is seen. The subscapularis tendinosis is noted. Sagittal images demonstrate mild supraspinatus muscle atrophy. Bones and bursae: No bone marrow contusions or fractures. Wkzg-ch-kpvgkpgy acromioclavicular joint osteoarthritic changes are seen with joint space narrowing and downward osteophyte formation. Xifz-xw-ooyihwgo glenohumeral joint osteoarthritic changes also seen. Slight superior migration of humeral head in relation to glenoid. Type 2 acromion without an os acromiale. Moderate amount of joint effusion and subacromial subdeltoid bursal fluid is seen, no loose bodies. Capsule and soft tissues: Signal abnormality and fraying involving posterior superior glenoid labrum is seen suggestive of posterior superior labral tear. The long head of the biceps tendon appears thickened with intrasubstance T2 hyperintense signal within bicipital groove extending to its proximal insertion. IMPRESSION: 1. Full-thickness rupture of distal supraspinatus at its insertion on humeral head with up to 3.5 cm medial retraction of torn tendon fibers to the level of acromion. Low-grade articular surface partial-thickness tear involving distal infraspinatus. Distal subscapularis tendinosis. Mild supraspinatus muscle atrophy. 2. Vrmt-xt-ofiilajf acromioclavicular joint osteoarthritis. No fracture or dislocation. Vdbz-ad-jcmuzwub glenohumeral joint osteoarthritis. Slight superior migration of humeral head in relation to glenoid. Moderate joint effusion and subacromial subdeltoid bursal fluid, no loose bodies. 3. Suggestion of posterior superior glenoid labral tear. 4. Jonc-gr-qodbtmug intrasubstance partial-thickness tear involving proximal intra-articular portion of long head of biceps. Dictated by: Fco Kovacs M.D. on 10/30/2024 at 15:30 Approved by: Fco Kovacs M.D. on 10/30/2024 at 16:34
== END ==
PROVIDERS: PCP Physician Assistant; Referring Provider Physician Assistant; Visit Provider Physician Assistant
DX: Z12.31 Encounter for screening mammogram for malignant neoplasm of breast (principal); M75.111 Incomplete rotator cuff tear or rupture of right shoulder, not specified as traumatic; M75.121 Complete rotator cuff tear or rupture of right shoulder, not specified as traumatic; S46.111A Strain of muscle, fascia and tendon of long head of biceps, right arm, initial encounter; M19.011 Primary osteoarthritis, right shoulder; M85.89 Other specified disorders of bone density and structure, multiple sites; M62.511 Muscle wasting and atrophy, not elsewhere classified, right shoulder; M25.511 Pain in right shoulder; X58.XXXA Exposure to other specified factors, initial encounter; Z78.0 Asymptomatic menopausal state
CPT/HCPCS: 73221; 77063; 77067; 77080

== ENCOUNTER → 2025-03-03 13:19 | Outpatient (CLI) | payer MEDICARE, OTHER, SELFPAY ==
--- NOTE | 2025-03-03 13:22 | DI.US.S_ITS ---
PROCEDURE: US THYROID INDICATIONS: previous tenderness after surgery TECHNIQUE: Real-time scanning was performed of the thyroid gland, with image documentation. COMPARISON: [facility], US, US SOFT TISSUE HEAD AND NECK, 01/22/2025, 16:22. [facility], US, US FINE NEEDLE ASPIRATION THYROID, 02/05/2024, 10:58. FINDINGS: Thyroid: Right lobe measures 3.7 x 1.4 x 1.1 cm. Left lobe measures 4.2 x 1.7 x 1.3 cm. Isthmus is 0.3 cm thick. Echotexture is homogeneous. Nodule number: 1 Location: Left inferior Size: 1.0 x 0.7 x 0.7 cm cm. Composition: Predominantly solid Echogenicity: Isoechoic Shape: wider than tall. Margins: Smooth Echogenic foci: Macro calcifications Total points: 4 ACR TI-RADS category: 4 moderately suspicious IMPRESSION: Stable left thyroid nodule. Continued annual follow up recommended. ACR TI-RADS definitions and recommendations: TI-RADS 1 (benign): 0 points. FNA not needed. TI-RADS 2 (not suspicious): 2 points. FNA not needed. TI-RADS 3: 3 points. * FNA if 2.5 cm or larger, follow up if 1.5 cm or larger (at 1, 3, and 5 years). TI-RADS 4: 4-6 points. * FNA if 1.5 cm or larger, follow up if 1 cm or larger (at 1, 2, 3, and 5 years). TI-RADS 5: 7 points or more. * FNA if 1 cm or larger, follow up if 0.5 cm or larger (every year for 5 years). Dictated by: Nikhil Joshua M.D. on 03/03/2025 at 15:47 Approved by: Nikhil Joshua M.D. on 03/03/2025 at 15:52
== END ==
LOC: US 13:21
PROVIDERS: PCP Physician Assistant; Referring Provider Physician Assistant Medical; Visit Provider Physician Assistant Medical
DX: M54.2 Cervicalgia (principal); E04.1 Nontoxic single thyroid nodule
CPT/HCPCS: 76536

== ENCOUNTER → 2025-03-10 15:05 | Outpatient (CLI) | payer MEDICARE, OTHER, SELFPAY ==
--- NOTE | 2025-03-10 15:07 | DI.RAD.S_ITS ---
PROCEDURE: XR CHEST 2V INDICATIONS: chronic cough. F/u 01/15/25 CXR TECHNIQUE: 2 views of the chest were acquired. COMPARISON: [facility] ([facility]), CR, XR CHEST 2V, 01/15/2025, 8:24. [facility] ([facility]), CR, XR CHEST 2V, 09/27/2022, 16:15. FINDINGS: Surgical changes and devices: None. Lungs and pleura: Lungs are clear. No pleural effusions or pneumothorax. Mediastinum: Mediastinal contours are normal. Heart size is normal. Bones and chest wall: No suspicious bony abnormalities. Soft tissues appear unremarkable. IMPRESSION: No acute cardiopulmonary abnormality is seen. Resolution of right lower lobe opacity. Dictated by: Emmanuel Adrian M.D. on 03/10/2025 at 17:42 Approved by: Emmanuel Adrian M.D. on 03/10/2025 at 17:43
== END ==
PROVIDERS: PCP Physician Assistant; Referring Provider Physician Assistant; Visit Provider Physician Assistant
DX: R05.3 Chronic cough (principal)
CPT/HCPCS: 71046